=== PATIENT | male | born 1960 | race Caucasian/White ===

== ENCOUNTER 2020-09-27 18:26 | Emergency (ER) | payer OTHER ==
[~2020-09-27] VITALS: Ht 182.9 cm; Wt 102.1 kg
[2020-09-27 18:47] LABS: BASOPHILS ABSOLUTE AUTO 0.05 K/mm3 (0.00-0.23); BASOPHILS PERCENT AUTO 1 % (0-2); EOSINOPHILS ABSOLUTE AUTO 0.16 K/mm3 (0.00-0.68); EOSINOPHILS PERCENT AUTO 2 % (0-6); Hematocrit 39.9 % (37.0-53.0); Hemoglobin 13.9 g/dL (13.5-17.5); IMMATURE GRAN ABSOLUTE AUTO 0.04 K/mm3 (0.00-0.10); IMMATURE GRAN PERCENT AUTO 1 % (0-1); LYMPHOCYTES ABSOLUTE AUTO 3.35 K/mm3 (0.84-5.20); LYMPHOCYTES PERCENT AUTO 39 % (21-46); MONOCYTES ABSOLUTE AUTO 0.51 K/mm3 (0.16-1.47); MONOCYTES PERCENT AUTO 6 % (4-13); Mean Corpuscular HGB 31.9 pg (26.0-34.0); Mean Corpuscular HGB Conc 34.8 g/dL (31.5-36.5); Mean Corpuscular Volume 92 fL (80-100); Mean Platelet Volume 10.2 fL (9.1-12.4); NEUTROPHILS ABSOLUTE AUTO 4.58 K/mm3 (1.96-9.15); NEUTROPHILS PERCENT AUTO 53 % (41-73); Platelet Count 192 K/mm3 (150-400); RDW Coefficient Variation 12.7 % (11.7-14.2); RDW Standard Deviation 42.3 fL (35.1-46.3); Red Blood Cell Count 4.36 M/mm3 (4.30-5.90); White Blood Cell Count 8.69 K/mm3 (4.00-11.30)
[2020-09-27 19:05] LABS: International Normalized Ratio 0.95; Prothrombin Time Results 10.3 Sec (9.7-11.5)
[2020-09-27 19:13] LABS: Alanine Aminotransfer (ALT/SGP 32 U/L (12-78); Albumin, Blood 3.4 g/dL (3.4-5.0); Alk Phos 68 U/L (50-136); Anion Gap 8 mmol/L (6-16); Aspartate Aminotrans (AST/SGOT 20 U/L (12-37); Bilirubin, Total 0.4 mg/dL (0.1-1.0); Blood Urea Nitrogen 16 mg/dL (8-24); Bun/Creatinine Ratio 15.1 (12.0-20.0); CO2, Blood 21 mmol/L (21-32); Calcium, Blood 8.7 mg/dL (8.5-10.1); Chloride, Blood 111 mmol/L (98-108); Creatinine, Blood 1.06 mg/dL (0.60-1.20); Ethanol (Alcohol), Blood, Med <3 mg/dL; Globulin, Blood 3.4 g/dL (2.2-4.0); Glomerular Filtration Rate >60 (60-); Glucose, Blood 152 mg/dL (70-99); Potassium, Blood 3.9 mmol/L (3.5-5.5); Sodium, Blood 140 mmol/L (136-145); Total Protein, Blood 6.8 g/dL (6.4-8.2)
== END 2020-09-27 19:54 | disposition short-term general hospital (02) ==
LOC: ER 18:26
PROVIDERS: Emergency Medicine
DX: T21.22XA Burn of second degree of abdominal wall, initial encounter (principal); T21.21XA Burn of second degree of chest wall, initial encounter; T31.11 Burns involving 10-19% of body surface with 10-19% third degree burns; Z23 Encounter for immunization; X08.8XXA Exposure to other specified smoke, fire and flames, initial encounter
CPT/HCPCS: 16030; 70450; 71045; 72125; 72128; 74177; 80053; 83690; 85025; 85610; 86850; 86900; 86901; 90471; 90714; 99285-25; G0480; Q9967

== ENCOUNTER → 2025-03-11 | Outpatient (CLI) | payer OTHER ==
[2025-03-11 15:48] LABS: BASOPHILS ABSOLUTE AUTO 0.03 K/mm3 (0.00-0.23); BASOPHILS PERCENT AUTO 1 % (0-2); EOSINOPHILS ABSOLUTE AUTO 0.22 K/mm3 (0.00-0.68); EOSINOPHILS PERCENT AUTO 4 % (0-6); Hematocrit 42.0 % (37.0-53.0); Hemoglobin 14.5 g/dL (13.5-17.5); IMMATURE GRAN ABSOLUTE AUTO 0.05 K/mm3 (0.00-0.10); IMMATURE GRAN PERCENT AUTO 1 % (0-1); LYMPHOCYTES ABSOLUTE AUTO 2.30 K/mm3 (0.84-5.20); LYMPHOCYTES PERCENT AUTO 41 % (21-46); MONOCYTES ABSOLUTE AUTO 0.39 K/mm3 (0.16-1.47); MONOCYTES PERCENT AUTO 7 % (4-13); Mean Corpuscular HGB Conc 34.5 g/dL (31.5-36.5); Mean Corpuscular Volume 89 fL (80-100); NEUTROPHILS ABSOLUTE AUTO 2.59 K/mm3 (1.96-9.15); NEUTROPHILS PERCENT AUTO 47 % (41-73); NRBC ABSOLUTE 0.00 K/mm3 (0.00-0.02); NRBC Auto 0.0 /100 WBC (0.0-0.2); RDW Coefficient Variation 12.4 % (11.7-14.2); RDW Standard Deviation 40.6 fL (35.1-46.3)
[2025-03-11 16:15] LABS: Platelet Count 246 K/mm3 (150-400)
[2025-03-11 17:25] LABS: Alanine Aminotransfer (ALT/SGP 29 U/L (12-78); Albumin, Blood 3.9 g/dL (3.4-5.0); Albumin/Globulin Ratio 1.1 (0.8-1.8); Anion Gap 10 mmol/L (3-11); Aspartate Aminotrans (AST/SGOT 15 U/L (12-37); Bilirubin, Total 0.5 mg/dL (0.1-1.0); Blood Urea Nitrogen 14 mg/dL (8-24); CHOL/HDL RATIO 5.9; CO2, Blood 24 mmol/L (21-32); Calcium, Blood 9.5 mg/dL (8.5-10.1); Chloride, Blood 107 mmol/L (98-108); Cholesterol 199 mg/dL (50-200); Creatinine, Blood 0.80 mg/dL (0.60-1.20); Globulin, Blood 3.7 g/dL (2.2-4.0); Glucose, Blood 152 mg/dL (70-99); HDL Cholesterol 34 mg/dL (>39); LDL/HDL RATIO 3.7; Low Density Lipoprotein Chol 126 mg/dL (0-110); Potassium, Blood 4.0 mmol/L (3.5-5.5); Sodium, Blood 137 mmol/L (136-145); Total Protein, Blood 7.6 g/dL (6.4-8.2); Triglycerides 195 mg/dL (30-160); Uric Acid, Blood 6.4 mg/dL (3.5-7.2); Very Low Density Lipoprot Chol 39 mg/dL (6-32)
== END ==
LOC: LAB 11:08 → LAB SHORT 11:08
PROVIDERS: Student in an Organized Health Care Education/Training Program
DX: E78.2 Mixed hyperlipidemia (principal); M10.9 Gout, unspecified
CPT/HCPCS: 80053; 80061; 84550; 85025